=== PATIENT | female | born 1985 | race Caucasian/White ===

== ENCOUNTER 2016-12-07 13:30 | Emergency (ER) | payer MEDICAID ==
[~2016-12-07] VITALS: Ht 157.5 cm; Wt 59.0 kg
[2016-12-07 13:45] VITALS: BP 128/82; PULSE 103; RESP 20; TEMP 98.7; O2SAT 100
--- NOTE | 2016-12-07 13:45 | NUR ---
Pt placed to ER bed 06 and to gown. Pt c/o epigastric abdominal pain with N/V since last night. No rebound tenderness noted.
[2016-12-07] MEDS ORDERED: NACL 0.9% 1,000 ML IV ONE (13:46)
[2016-12-07] MEDS ORDERED: KETOROLAC TROMETHAMINE 30 MG VIAL IVP ONE (14:00)
[2016-12-07] MEDS ORDERED: ONDANSETRON HCL 4 MG/2 ML VIAL IVP ONE (14:00)
[2016-12-07] MEDS ORDERED: PROCHLORPERAZINE EDISYLATE 10 MG/2 ML VIAL IVP ONE (14:00)
--- NOTE | 2016-12-07 14:00 | NUR ---
Dr. Apodaca at bedside to assess pt.
--- NOTE | 2016-12-07 14:05 | NUR ---
Pt presents to ED c/o epigastric pain. Pt denies chest pain or SOB. Pt denies significant med hx.
[2016-12-07 14:15] LABS: BASOPHILS % (AUTO) 0.5 % (0.0-2.0); EOSINOPHILS # (AUTO) 0.2 K/uL (0.0-0.4); EOSINOPHILS % (AUTO) 2.9 % (0.0-4.0); HEMATOCRIT 36.3 % (36-48); HEMOGLOBIN 12.3 g/dL (12.0-16.0); LYMPHOCYTES # (AUTO) 1.6 K/uL (1.0-5.5); LYMPHOCYTES % (AUTO) 21.4 % (20.5-51.5); MEAN CORPUSCULAR HEMOGLOBIN 30 pg (27-31); MEAN CORPUSCULAR HGB CONC 34 % (32-36); MEAN CORPUSCULAR VOLUME 87 fL (79.0-98.0); MONOCYTES # (AUTO) 0.3 K/uL (0.0-1.0); MONOCYTES % (AUTO) 4.1 % (1.7-9.3); NEUTROPHILS # (AUTO) 5.3 K/uL (1.8-7.7); NEUTROPHILS % (AUTO) 71.1 % (40.0-70.0); PLATELET COUNT (AUTO) 217 K/uL (130-430); RED BLOOD CELL COUNT(AUTO) 4.17 MIL/uL (4.2-6.2); RED CELL DISTRIBUTION WIDTH 12.9 % (9.0-15.0); WHITE BLOOD COUNT (AUTO) 7.4 K/uL (4.8-10.8)
[2016-12-07 14:25] LABS: CALCIUM 8.8 mg/dL (8.4-11.0); CREATININE 0.89 mg/dL (0.55-1.30); POTASSIUM 3.5 mmol/L (3.5-5.1)
[2016-12-07 14:30] LABS: ALBUMIN 3.8 g/dL (3.4-4.8); TOTAL BILIRUBIN 0.4 mg/dL (0.0-1.0)
--- NOTE | 2016-12-07 14:30 | NUR ---
Pt tolerated medication for pain and nausea.
[2016-12-07 14:44] LABS: BILIRUBIN,URINE 1+ (NEGATIVE); BLOOD, URINE NEGATIVE (NEGATIVE); CLARITY/URINE HAZY (CLEAR); COLOR,URINE YELLOW (YELLOW); GLUCOSE,URINE NEGATIVE (NEGATIVE); KETONES,URINE NEGATIVE (NEGATIVE); LEUKOCYTE ESTERASE ,URINE 2+ (NEGATIVE); NITRITE, URINE NEGATIVE (NEGATIVE); PROTEIN URINE 1+ (NEGATIVE)
[2016-12-07 14:51] LABS: BACTERIA,URINE FEW /HPF (None Seen); RBC,URINE 0-3 /HPF (0-3); WBC,URINE 20-50 /HPF (0-3)
[2016-12-07 14:52] LABS: MUCUS,URINE 1+ /LPF (None Seen)
--- NOTE | 2016-12-07 15:10 | NUR ---
Pt ambulated to restroom for urine specimen, initiated specimen insufficient.
--- NOTE | 2016-12-07 15:30 | NUR ---
Pt sleeping easily aroused,pain tolerable.
--- NOTE | 2016-12-07 15:36 | NUR ---
Assumed patient care. Patient here C/O abdominal pain. At this time patient states that she feels OK. No signs of acute dsitress. No medical complaints. Awaiting US test.
--- NOTE | 2016-12-07 16:03 | NUR ---
US tech at bedside with portable for US testing.
[2016-12-07 17:09] VITALS: BP 124/77; PULSE 76; RESP 17; TEMP 98.6; O2SAT 99
--- NOTE | 2016-12-07 17:09 | NUR ---
Patient given written and verbal discharge instructions and verbalizes understanding. ER MD Apodaca discussed with patient the results and treatment provided. Patient in stable condition. ID arm band removed. IV catheter removed intact and dressing applied, no active bleeding. Rx ofzofran, macrobid given. Patient educated on pain management and to follow up with PMD. Pain Scale 0/10. Opportunity for questions provided and answered.
== END 2016-12-07 17:09 | disposition home or self-care (01) ==
LOC: SED 13:30
DX: K80.50 Calculus of bile duct without cholangitis or cholecystitis without obstruction (principal); N39.0 Urinary tract infection, site not specified
CPT/HCPCS: 36415; 76705; 80053; 81000; 81025; 82150; 83690; 85025; 96361; 96374; 96375; 99285; J0780; J1885; J2405; J7030

== ENCOUNTER 2018-03-05 16:38 | Emergency (ER) | payer MEDICAID ==
[~2018-03-05] VITALS: Ht 157.5 cm; Wt 59.0 kg
[2018-03-05 16:49] VITALS: BP_SYST 130
== END 2018-03-05 18:05 | disposition left against medical advice (07) ==
LOC: SED 16:38
DX: N93.9 Abnormal uterine and vaginal bleeding, unspecified (principal); M54.5 Low back pain
CPT/HCPCS: 99281

== ENCOUNTER 2018-08-01 18:03 | Emergency (ER) | payer MEDICAID ==
[~2018-08-01] VITALS: Ht 157.5 cm; Wt 58.1 kg
[2018-08-01 18:10] VITALS: BP_SYST 157
[2018-08-01] MEDS ORDERED: NACL 0.9% 1,000 ML IV ONE (18:30)
[2018-08-01] MEDS ORDERED: LORazepam 2 MG/ML VIAL (FOR ER USE) IVP ONE (18:30)
[2018-08-01 21:10] VITALS: BP_SYST 128
== END 2018-08-01 21:00 | disposition home or self-care (01) ==
LOC: SED 18:03
DX: F41.1 Generalized anxiety disorder (principal); F17.210 Nicotine dependence, cigarettes, uncomplicated; R03.0 Elevated blood-pressure reading, without diagnosis of hypertension; Z71.6 Tobacco abuse counseling
CPT/HCPCS: 81025; 96374; 99284; J2060; J7030

== ENCOUNTER 2023-11-07 20:25 | Emergency (ER) | payer MEDICAID, OTHER ==
[~2023-11-07] VITALS: Ht 157.5 cm; Wt 68.0 kg
[2023-11-07 20:33] VITALS: BP_SYST 156; PULSE 93; RESP 18; TEMP 98.8; O2SAT 99
[2023-11-07] MEDS: KETOROLAC TROMETHAMINE 60 MG/2 ML VIAL IM ONE (21:18)
[2023-11-07 22:00] VITALS: BP_SYST 126; PULSE 81; RESP 18; TEMP 98.4; O2SAT 99
[2023-11-07] MEDS ORDERED: IBUP-1971 PO (22:01)
[2023-11-07] MEDS ORDERED: DICL20GE TP (22:01)
== END 2023-11-07 22:00 | disposition home or self-care (01) ==
LOC: SED 20:25
DX: S80.02XA Contusion of left knee, initial encounter (principal); W18.30XA Fall on same level, unspecified, initial encounter; Y93.89 Activity, other specified; Y92.89 Other specified places as the place of occurrence of the external cause; Y99.8 Other external cause status
CPT/HCPCS: 99283; 29505; 73564; 96372; J1885